=== PATIENT | male | born 1955 | race American Indian/Alaskan Native ===

== ENCOUNTER 2017-06-26 11:20 | Emergency (ER) | payer MEDICARE, MEDICAID ==
[2017-06-26 11:30] VITALS: BP 138/99
[2017-06-26 12:01] LABS: Basophils % (Auto) 0.6 % (0.0-1.8); Eosinophils % (Auto) 0.9 % (0.0-4.3); Hematocrit 45.2 % (35.5-45.6); Hemoglobin 15.8 gm/dl (11.8-15.2); Mean Corpuscular HGB Conc 35 % (32-34); Mean Corpuscular Hemoglobin 32 pg (28-32); Mean Corpuscular Volume 91 fl (84-94); Platelet Count 214 K/mm3 (140-440); Red Blood Count 4.98 M/mm3 (3.65-5.03); Red Cell Distribution Width 13.1 % (13.2-15.2); White Blood Count 6.5 K/mm3 (4.5-11.0)
[2017-06-26 12:24] LABS: BUN/Creatinine Ratio 11; Blood Urea Nitrogen 11 mg/dL (9-20); Carbon Dioxide 24 mmol/L (22-30); Glucose 91 mg/dL (75-100)
[2017-06-26 12:25] LABS: Anion Gap 19 mmol/L; Chloride 101.5 mmol/L (98-107); Potassium 3.8 mmol/L (3.6-5.0); Sodium 141 mmol/L (137-145)
== END 2017-06-26 18:13 | disposition left against medical advice (07) ==
LOC: ED 11:20
DX: R07.9 Chest pain, unspecified (principal); Z53.21 Procedure and treatment not carried out due to patient leaving prior to being seen by health care provider
CPT/HCPCS: 36415; 80048; 84484; 85025; 93005; 93010

== ENCOUNTER 2019-05-22 15:06 | Emergency (ER) | payer MEDICAID, MEDICARE | END 2019-05-22 15:15 | disposition left against medical advice (07) | LOC: ED 15:06 | DX: R07.9 Chest pain, unspecified (principal); Z53.21 Procedure and treatment not carried out due to patient leaving prior to being seen by health care provider ==

== ENCOUNTER 2021-04-14 19:22 | Emergency (ER) | payer MEDICARE ==
[2021-04-14 20:17] VITALS: BP 120/85
[2021-04-14] MEDS ORDERED: dexAMETHasone 4 MG/ML VIAL IM STA (20:39)
[2021-04-14] MEDS ORDERED: KETOROLAC 60 MG/2 ML INJ IM ONE (20:39)
--- NOTE | 2021-04-14 20:39 | Emergency Department Report ---
ED General Adult HPI - General Chief complaint: Back Pain/Injury Stated complaint: BACK PAIN Time Seen by Provider: 04/14/21 20:21 Source: patient Mode of arrival: Ambulatory Limitations: No Limitations - History of Present Illness Initial comments: 66-year-old -[place] male patient presents with complaints of low back pain x3 months intermittently, worsening over the past week. Patient denies any injuries to his back, however does admit to recent increase physical activity and walking a great deal. He rates his pain as a 8/10 in severity and states it worsens with ambulation. No loss of bladder/bowel control, numbness/tingling/weakness in his limbs, hematochezia/hematuria, difficulty with ambulation, or history of cancer per patient. He states he saw his primary care doctor 2 days ago and was prescribed Flexeril which is not helping. He has not tried any other medication for his symptoms. - Related Data Home Medications Medication Instructions Recorded Confirmed Last Taken Ibuprofen [Motrin 800 MG tab] 800 mg PO BID PRN 11/03/19 11/04/19 Unknown Omeprazole 20 mg PO BID 11/03/19 11/04/19 Unknown Previous Rx's Medication Instructions Recorded Last Taken Type Benzonatate [Tessalon Perles] 200 mg PO 0400,1200,2000 #20 11/07/19 Unknown Rx capsule levoFLOXacin [Levaquin] 750 mg PO QDAY #10 tablet 11/07/19 Unknown Rx oxyCODONE /ACETAMINOPHEN [Percocet 1 tab PO Q6H PRN #8 tablet 11/07/19 Unknown Rx 5/325 mg] Naproxen 500 mg PO BID PRN #20 tablet 04/14/21 Unknown Rx methOCARBAMOL [Robaxin TAB] 750 - 1,500 mg PO Q8H PRN #24 04/14/21 Unknown Rx tablet Allergies Allergy/AdvReac Type Severity Reaction Status Date / Time No Known Allergies Allergy Verified 01/29/14 13:00 ED Review of Systems ROS: Stated complaint: BACK PAIN Other details as noted in HPI Constitutional: denies: chills, diaphoresis, fever, malaise Respiratory: denies: cough, shortness of breath Cardiovascular: denies: chest pain Gastrointestinal: denies: abdominal pain, nausea, vomiting, diarrhea, hematemesis, hematochezia Genitourinary: denies: urgency, dysuria, frequency, hematuria Neurological: abnormal gait (Limping due to pain in back). denies: numbness, paresthesias ED Past Medical Hx - Past Medical History Hx Heart Attack/AMI: No Hx Congestive Heart Failure: No Hx Diabetes: No Hx GERD: Yes Hx Arthritis: Yes Hx Asthma: Yes Hx COPD: No Hx Dementia: No Hx HIV: No - Social History Smoking Status: Never Smoker - Medications Home Medications: Home Medications Medication Instructions Recorded Confirmed Last Taken Type Ibuprofen [Motrin 800 MG tab] 800 mg PO BID PRN 11/03/19 11/04/19 Unknown History Omeprazole 20 mg PO BID 11/03/19 11/04/19 Unknown History Benzonatate [Tessalon Perles] 200 mg PO 0400,1200,2000 #20 11/07/19 Unknown Rx capsule levoFLOXacin [Levaquin] 750 mg PO QDAY #10 tablet 11/07/19 Unknown Rx oxyCODONE /ACETAMINOPHEN [Percocet 1 tab PO Q6H PRN #8 tablet 11/07/19 Unknown Rx 5/325 mg] Naproxen 500 mg PO BID PRN #20 tablet 04/14/21 Unknown Rx methOCARBAMOL [Robaxin TAB] 750 - 1,500 mg PO Q8H PRN #24 04/14/21 Unknown Rx tablet ED Physical Exam - General Limitations: No Limitations General appearance: alert, in no apparent distress - Head Head exam: Present: atraumatic, normocephalic - Eye Eye exam: Present: normal appearance. Absent: scleral icterus - Respiratory Respiratory exam: Absent: respiratory distress - Cardiovascular Cardiovascular Exam: Present: regular rate - Extremities Exam Extremities exam: Present: full ROM - Back Exam Back exam: Present: full ROM, paraspinal tenderness (Right lower lumbar). Absent: vertebral tenderness - Expanded Back Exam Expanded Back exam: Absent: saddle anesthesia Back exam: Sciatic Notch Tenderness: Right - Neurological Exam Neurological exam: Present: alert, oriented X3. Absent: normal gait (Antalgic) - Expanded Neurological Exam Expanded Sensory exam: Lower Extremity Light Touch: Normal Motor strength exam: RLE: 4, LLE: 4 - Psychiatric Psychiatric exam: Present: normal affect, normal mood - Skin Skin exam: Present: warm, dry, intact, normal color. Absent: rash ED Course Vital Signs 04/14/21 20:13 Temperature 98.0 F Pulse Rate 67 Respiratory 16 Rate Blood Pressure 120/85 [Left] O2 Sat by Pulse 100 Oximetry ED Medical Decision Making - Medical Decision Making 66-year-old -[place] male patient presents with complaints of low back pain x3 months intermittently, worsening over the past week. Patient denies any injuries to his back, however does admit to recent increase physical activity and walking a great deal. He rates his pain as a 8/10 in severity and states it worsens with ambulation. No loss of bladder/bowel control, numbness/tingling/weakness in his limbs, hematochezia/hematuria, difficulty with ambulation, or history of cancer per patient. He states he saw his primary care doctor 2 days ago and was prescribed Flexeril which is not helping. He has not tried any other medication for his symptoms. Patient denies any red flag symptoms. Suspect piriformis syndrome given physical exam. Conservative treatment with NSAIDs and muscle relaxers and icing along with stretching recommended. Patient to follow-up with his primary care doctor on Saturday. He is well-appearing, his vitals are within normal limits, he is stable for discharge home. Strict return precautions were discussed in detail with patient who verbalizes understanding. Critical care attestation.: If time is entered above; I have spent that time in minutes in the direct care of this critically ill patient, excluding procedure time. ED Disposition Clinical Impression: Back pain, Piriformis syndrome Disposition: 01 HOME / SELF CARE / HOMELESS Is pt being admited?: No Condition: Stable Instructions: Piriformis Syndrome, Sciatica Prescriptions: Naproxen 500 mg PO BID PRN #20 tablet PRN Reason: pain methOCARBAMOL [Robaxin TAB] 750 - 1,500 mg PO Q8H PRN #24 tablet PRN Reason: muscle spasms/tightness Referrals: [facility] [Provider Group] - 3-5 Days Forms: Work/School Release Form(ED)
== END 2021-04-15 02:00 | disposition home or self-care (01) ==
LOC: ED 19:22
DX: M54.5 Low back pain (principal); G57.00 Lesion of sciatic nerve, unspecified lower limb
CPT/HCPCS: 96372; 99282; J1100; J1885

== ENCOUNTER 2021-05-04 21:09 | Emergency (ER) | payer MEDICARE ==
[2021-05-04 21:36] VITALS: BP 135/85
[2021-05-04] MEDS ORDERED: KETOROLAC 30 MG/1 ML INJ IM ONE (21:52)
--- NOTE | 2021-05-04 22:26 | Emergency Department Report ---
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 Is he strained his back at work. The same location and intensity as usual sciatic flare. Patient states out of medications. Has not seen primary care doctor this week. There is no fevers no chills no numbness or tingling no loss or decrease in bowel or bladder function. She remains amatory to baseline per patient drove self to ED tonight , states pain is 4/10 radiating to right thigh is persistent and burning. Exacerbated by performing work duties. MD Complaint: back injury - Related Data Home Medications Medication Instructions Recorded Confirmed Last Taken Ibuprofen [Motrin 800 MG tab] 800 mg PO BID PRN 11/03/19 11/04/19 Unknown Omeprazole 20 mg PO BID 11/03/19 11/04/19 Unknown Previous Rx's Medication Instructions Recorded Last Taken Type Benzonatate [Tessalon Perles] 200 mg PO 0400,1200,2000 #20 11/07/19 Unknown Rx capsule levoFLOXacin [Levaquin] 750 mg PO QDAY #10 tablet 11/07/19 Unknown Rx oxyCODONE /ACETAMINOPHEN [Percocet 1 tab PO Q6H PRN #8 tablet 11/07/19 Unknown Rx 5/325 mg] Naproxen 500 mg PO BID PRN #20 tablet 04/14/21 Unknown Rx methOCARBAMOL [Robaxin TAB] 750 - 1,500 mg PO Q8H PRN #24 04/14/21 Unknown Rx tablet Acetaminophen 1,000 mg PO Q6H PRN #30 capsule 05/04/21 Unknown Rx Cyclobenzaprine [Flexeril] 10 mg PO BID PRN #20 tablet 05/04/21 Unknown Rx Methyl Salicylate/Menth/Camph 1 each TP Q6H PRN #10 adh..patch 05/04/21 Unknown Rx [Salonpas 3.1%-6.0%-10.0% Patch] Allergies Allergy/AdvReac Type Severity Reaction Status Date / Time No Known Allergies Allergy Verified 01/29/14 13:00 ED Review of Systems ROS: Stated complaint: HIP/BACK PAIN Other details as noted in HPI Constitutional: denies: chills, fever Eyes: denies: eye pain, eye discharge, vision change ENT: denies: ear pain, throat pain Respiratory: denies: cough, shortness of breath, wheezing Cardiovascular: denies: chest pain, palpitations Endocrine: no symptoms reported Gastrointestinal: denies: abdominal pain, nausea, diarrhea Genitourinary: denies: urgency, dysuria Musculoskeletal: back pain, arthralgia, myalgia Skin: denies: rash, lesions Neurological: denies: headache, weakness, paresthesias Psychiatric: denies: anxiety, depression Hematological/Lymphatic: denies: easy bleeding, easy bruising ED Past Medical Hx - Past Medical History Previous Medical History?: Yes Hx Heart Attack/AMI: No Hx Congestive Heart Failure: No Hx Diabetes: No Hx GERD: Yes Hx Arthritis: Yes Hx Asthma: Yes Hx COPD: No Hx Dementia: No Hx HIV: No - Surgical History Past Surgical History?: No - Social History Smoking Status: Never Smoker - Medications Home Medications: Home Medications Medication Instructions Recorded Confirmed Last Taken Type Ibuprofen [Motrin 800 MG tab] 800 mg PO BID PRN 11/03/19 11/04/19 Unknown History Omeprazole 20 mg PO BID 11/03/19 11/04/19 Unknown History Benzonatate [Tessalon Perles] 200 mg PO 0400,1200,2000 #20 11/07/19 Unknown Rx capsule levoFLOXacin [Levaquin] 750 mg PO QDAY #10 tablet 11/07/19 Unknown Rx oxyCODONE /ACETAMINOPHEN [Percocet 1 tab PO Q6H PRN #8 tablet 11/07/19 Unknown Rx 5/325 mg] Naproxen 500 mg PO BID PRN #20 tablet 04/14/21 Unknown Rx methOCARBAMOL [Robaxin TAB] 750 - 1,500 mg PO Q8H PRN #24 04/14/21 Unknown Rx tablet Acetaminophen 1,000 mg PO Q6H PRN #30 capsule 05/04/21 Unknown Rx Cyclobenzaprine [Flexeril] 10 mg PO BID PRN #20 tablet 05/04/21 Unknown Rx Methyl Salicylate/Menth/Camph 1 each TP Q6H PRN #10 adh..patch 05/04/21 Unknown Rx [Salonpas 3.1%-6.0%-10.0% Patch] ED Physical Exam - General Limitations: No Limitations General appearance: alert, in no apparent distress - Head Head exam: Present: atraumatic, normocephalic - Eye Eye exam: Present: normal appearance, EOMI Pupils: Present: normal accommodation - ENT ENT exam: Present: mucous membranes moist - Neck Neck exam: Present: normal inspection, full ROM. Absent: tenderness - Respiratory Respiratory exam: Present: normal lung sounds bilaterally. Absent: respiratory distress - Cardiovascular Cardiovascular Exam: Present: regular rate, normal rhythm, normal heart sounds. Absent: systolic murmur, diastolic murmur, rubs, gallop - GI/Abdominal GI/Abdominal exam: Present: soft, normal bowel sounds. Absent: distended, tenderness - Rectal Rectal exam: Present: deferred - Extremities Exam Extremities exam: Present: normal inspection, full ROM, normal capillary refill. Absent: tenderness - Back Exam Back exam: Present: normal inspection, full ROM, muscle spasm, paraspinal tenderness. Absent: vertebral tenderness - Neurological Exam Neurological exam: Present: alert, oriented X3, CN II-XII intact, normal gait, reflexes normal. Absent: motor sensory deficit - Expanded Neurological Exam Expanded Patient oriented to: Present: person, place, time Speech: Present: fluid speech Motor strength exam: RUE: 5, LUE: 5, RLE: 5, LLE: 5 DTR: knee (R): 1+, knee (L): 1+ Best Eye Response ([place]): (4) open spontaneously Best Motor Response ([place]): (6) obeys commands Best Verbal Response ([place]): (5) oriented Luz Total: 15 - Psychiatric Psychiatric exam: Present: normal affect, normal mood - Skin Skin exam: Present: warm, dry, intact, normal color. Absent: rash ED Course Vital Signs 05/04/21 21:33 Temperature 97.6 F Pulse Rate 77 Respiratory 18 Rate Blood Pressure 135/85 O2 Sat by Pulse 99 Oximetry ED Medical Decision Making - Medical Decision Making Back pain is improved to 2/10. Patient is amatory with steady gait with no acute distress at this time. Plan DC to home with prescriptions. Follow-up primary care doctor. Moist heat therapy. Back exercises. Return to ED should symptoms worsen. Verbalized agreement and understanding with discharge plan DC'd home in stable condition at this time. Critical care attestation.: If time is entered above; I have spent that time in minutes in the direct care of this critically ill patient, excluding procedure time. ED Disposition Clinical Impression: Low back strain Qualifiers: Encounter type: initial encounter Qualified Code(s): S39.012A - Strain of muscle, fascia and tendon of lower back, initial encounter Disposition: HOME / SELF CARE / HOMELESS Is pt being admited?: No Does the pt Need Aspirin: No Condition: Stable Instructions: Low Back Sprain or Strain Rehab-SportsMed, Back Injury Prevention Additional Instructions: Take medications as prescribed, moist heat therapy as directed. Follow-up with your doctor in 2 to 3 days. Return to ED should symptoms worsen. Prescriptions: Acetaminophen 1,000 mg PO Q6H PRN #30 capsule PRN Reason: Pain , Severe (7-10) Cyclobenzaprine [Flexeril] 10 mg PO BID PRN #20 tablet PRN Reason: Muscle Spasm Methyl Salicylate/Menth/Camph [Salonpas 3.1%-6.0%-10.0% Patch] 1 each TP Q6H PRN #10 adh..patch PRN Reason: pain Referrals: MARILU ROBLERO MD [Staff Physician] - 3-5 Days Forms: Work/School Release Form(ED) Time of Disposition: 22:43
== END 2021-05-04 23:00 | disposition home or self-care (01) ==
LOC: ED 21:09
DX: S39.012A Strain of muscle, fascia and tendon of lower back, initial encounter (principal); J45.909 Unspecified asthma, uncomplicated; X58.XXXA Exposure to other specified factors, initial encounter; Y93.89 Activity, other specified; Y92.89 Other specified places as the place of occurrence of the external cause; Y99.8 Other external cause status
CPT/HCPCS: 96372; 99282; J1885

== ENCOUNTER 2021-05-14 20:23 | Emergency (ER) | payer MEDICARE ==
[2021-05-14 20:48] VITALS: BP 141/101
[2021-05-14] MEDS ORDERED: oxyCODONE /ACETAMINOPHEN 5-325MG TAB PO ONE (20:57)
[2021-05-14] MEDS ORDERED: KETOROLAC 30 MG/1 ML INJ IM ONE (20:57)
--- NOTE | 2021-05-14 21:04 | Emergency Department Report ---
ED Back Pain/Injury HPI - General Chief Complaint: Back Pain/Injury Stated Complaint: BACK PAIN Time Seen by Provider: 05/14/21 20:36 Source: patient Limitations: No Limitations - History of Present Illness Initial Comments: Chief complaint: Back pain HPI: This is a 66-year-old male with history of asthma, CVA, chronic back pain who presents with lower back pain course of the last 3 weeks. His PCP gave him injection at the right for pain. Pain has been persistent since. He was recently evaluated at this hospital on the for back pain as well as April 14. He has right flank pain rating to the right buttock. Denies leg weakness. Denies bowel or bladder incontinence. Denies fever. No history of IV drug use. He desires a few days off work. He also desires pain medication in pill form. MD Complaint: back pain -: Gradual, week(s) (3 weeks) Similar Symptoms Previously: Yes Severity: moderate Severity scale (0 -10): 7 Quality: crushing Consistency: constant Improves With: medication (Easily pain injections work in PCPs office did not work this time) Worsens With: none Associated Symptoms: denies other symptoms - Related Data Home Medications Medication Instructions Recorded Confirmed Last Taken Ibuprofen [Motrin 800 MG tab] 800 mg PO BID PRN 11/03/19 11/04/19 Unknown Omeprazole 20 mg PO BID 11/03/19 11/04/19 Unknown Previous Rx's Medication Instructions Recorded Last Taken Type Benzonatate [Tessalon Perles] 200 mg PO 0400,1200,2000 #20 11/07/19 Unknown Rx capsule levoFLOXacin [Levaquin] 750 mg PO QDAY #10 tablet 11/07/19 Unknown Rx oxyCODONE /ACETAMINOPHEN [Percocet 1 tab PO Q6H PRN #8 tablet 11/07/19 Unknown Rx 5/325 mg] Naproxen 500 mg PO BID PRN #20 tablet 04/14/21 Unknown Rx methOCARBAMOL [Robaxin TAB] 750 - 1,500 mg PO Q8H PRN #24 04/14/21 Unknown Rx tablet Acetaminophen 1,000 mg PO Q6H PRN #30 capsule 05/04/21 Unknown Rx Cyclobenzaprine [Flexeril] 10 mg PO BID PRN #20 tablet 05/04/21 Unknown Rx Methyl Salicylate/Menth/Camph 1 each TP Q6H PRN #10 adh..patch 05/04/21 Unknown Rx [Salonpas 3.1%-6.0%-10.0% Patch] Cyclobenzaprine [Flexeril] 10 mg PO TID PRN #20 tablet 05/14/21 Unknown Rx Ibuprofen [Motrin 400 MG tab] 400 mg PO TID 5 Days #15 tablet 05/14/21 Unknown Rx oxyCODONE /ACETAMINOPHEN [Percocet 1 tab PO Q6HR PRN #10 tablet 05/14/21 Unknown Rx 5/325] Allergies Allergy/AdvReac Type Severity Reaction Status Date / Time No Known Allergies Allergy Verified 01/29/14 13:00 ED Review of Systems ROS: Stated complaint: BACK PAIN Other details as noted in HPI Comment: All other systems reviewed and negative Respiratory: denies: cough, shortness of breath Cardiovascular: denies: chest pain Gastrointestinal: denies: abdominal pain, nausea, vomiting Musculoskeletal: back pain ED Past Medical Hx - Past Medical History Previous Medical History?: Yes Hx Heart Attack/AMI: No Hx Congestive Heart Failure: No Hx Diabetes: No Hx GERD: Yes Hx Arthritis: Yes Hx Asthma: Yes Hx COPD: No Hx Dementia: No Hx HIV: No Additional medical history: chronic lower back pain - Surgical History Past Surgical History?: No - Social History Smoking Status: Never Smoker Substance Use Type: None - Medications Home Medications: Home Medications Medication Instructions Recorded Confirmed Last Taken Type Ibuprofen [Motrin 800 MG tab] 800 mg PO BID PRN 11/03/19 11/04/19 Unknown History Omeprazole 20 mg PO BID 11/03/19 11/04/19 Unknown History Benzonatate [Tessalon Perles] 200 mg PO 0400,1200,2000 #20 11/07/19 Unknown Rx capsule levoFLOXacin [Levaquin] 750 mg PO QDAY #10 tablet 11/07/19 Unknown Rx oxyCODONE /ACETAMINOPHEN [Percocet 1 tab PO Q6H PRN #8 tablet 11/07/19 Unknown Rx 5/325 mg] Naproxen 500 mg PO BID PRN #20 tablet 04/14/21 Unknown Rx methOCARBAMOL [Robaxin TAB] 750 - 1,500 mg PO Q8H PRN #24 04/14/21 Unknown Rx tablet Acetaminophen 1,000 mg PO Q6H PRN #30 capsule 05/04/21 Unknown Rx Cyclobenzaprine [Flexeril] 10 mg PO BID PRN #20 tablet 05/04/21 Unknown Rx Methyl Salicylate/Menth/Camph 1 each TP Q6H PRN #10 adh..patch 05/04/21 Unknown Rx [Salonpas 3.1%-6.0%-10.0% Patch] Cyclobenzaprine [Flexeril] 10 mg PO TID PRN #20 tablet 05/14/21 Unknown Rx Ibuprofen [Motrin 400 MG tab] 400 mg PO TID 5 Days #15 tablet 05/14/21 Unknown Rx oxyCODONE /ACETAMINOPHEN [Percocet 1 tab PO Q6HR PRN #10 tablet 05/14/21 Unknown Rx 5/325] ED Physical Exam - General Limitations: No Limitations General appearance: alert, in no apparent distress - Head Head exam: Present: atraumatic, normocephalic - Eye Eye exam: Present: normal appearance - ENT ENT exam: Present: mucous membranes moist - Neck Neck exam: Present: normal inspection, full ROM - Respiratory Respiratory exam: Present: normal lung sounds bilaterally. Absent: respiratory distress, wheezes, rales, rhonchi, stridor, chest wall tenderness - Cardiovascular Cardiovascular Exam: Present: regular rate, normal rhythm, normal heart sounds. Absent: systolic murmur, diastolic murmur, rubs, gallop - GI/Abdominal GI/Abdominal exam: Present: soft, normal bowel sounds. Absent: distended, tenderness, guarding, rebound - Rectal Rectal exam: Present: deferred - Extremities Exam Extremities exam: Present: normal inspection - Back Exam Back exam: Present: normal inspection, full ROM. Absent: CVA tenderness (L), muscle spasm, paraspinal tenderness - Neurological Exam Neurological exam: Present: alert, oriented X3, normal gait - Psychiatric Psychiatric exam: Present: normal affect, normal mood - Skin Skin exam: Present: warm, dry, intact, normal color. Absent: rash ED Course Vital Signs 05/14/21 05/14/21 20:31 20:47 Temperature 98.5 F 97.6 F Pulse Rate 82 99 H Respiratory 18 20 Rate Blood Pressure 131/82 141/101 [Right] O2 Sat by Pulse 97 100 Oximetry ED Medical Decision Making - Medical Decision Making Acute on chronic lower back pain suggestive of lumbar degenerative disc disease I referred patient to spine surgeon Dr. Staton I prescribed 5 tablets of Percocet, 5-day course of ibuprofen, Flexeril as needed. No red flags: No history of trauma, weight loss, fever, IV drug use, neurological deficit Critical care attestation.: If time is entered above; I have spent that time in minutes in the direct care of this critically ill patient, excluding procedure time. ED Disposition Clinical Impression: Musculoskeletal back pain Disposition: HOME / SELF CARE / HOMELESS Is pt being admited?: No Does the pt Need Aspirin: No Condition: Stable Instructions: Chronic Back Pain Prescriptions: Cyclobenzaprine [Flexeril] 10 mg PO TID PRN #20 tablet PRN Reason: Muscle Spasm Ibuprofen [Motrin 400 MG tab] 400 mg PO TID 5 Days #15 tablet oxyCODONE /ACETAMINOPHEN [Percocet 5/325] 1 tab PO Q6HR PRN #10 tablet PRN Reason: Pain Referrals: ANNALISA STATON II, MD [Staff Physician] - 3-5 Days Forms: Work/School Release Form(ED)
== END 2021-05-14 21:52 | disposition home or self-care (01) ==
LOC: ED 20:23
DX: M54.50 Low back pain, unspecified (principal); G89.29 Other chronic pain; K21.9 Gastro-esophageal reflux disease without esophagitis; J45.909 Unspecified asthma, uncomplicated; M19.90 Unspecified osteoarthritis, unspecified site; Z98.890 Other specified postprocedural states; Z79.899 Other long term (current) drug therapy
CPT/HCPCS: 96372; 99282; J1885